=== PATIENT | male | born 1950 | race Two or more races ===

== ENCOUNTER 2023-08-14 10:00 | Inpatient (IN) | payer OTHER ==
[~2023-08-14] VITALS: Ht 170.2 cm; Wt 63.5 kg
[2023-08-14 15:35] LABS: URINE APPEARANCE Clear; URINE BILIRRUBIN Negative (NEGATIVE); URINE BLOOD Trace; URINE COLOR Yellow; URINE GLUCOSE Negative (NEGATIVE); URINE LEUKOCYTE Negative; URINE NITRATE Negative; URINE PROTEIN 30 (NEGATIVE)
[2023-08-14 15:44] LABS: URINE BACTERIA 31.4 uL (0.0-1933); URINE EPITHELIAL CELLS 7.5 uL (0.0-38.8); URINE RBC 16.5 uL (0.0-20.8); URINE WBC 5.3 uL (0.0-23.2)
[2023-08-14 15:53] LABS: INR 0.99; PARTIAL THROMBOPLASTIN TIME 27.7 SECONDS (22.0-34.0); PROTHROMBIN TIME 10.4 SECONDS (9.0-11.5)
[2023-08-14 15:57] LABS: ALBUMIN 3.4 gm/dL (3.4-5.0); CALCIUM 9.2 mg/dL (8.5-10.1); CREATININE SERUM 1.15 mg/dL (0.70-1.30); GFR 62.69; PHOSPHOROUS 3.1 mg/dL (2.5-4.9); POTASSIUM 3.22 mEq/L (3.5-5.1)
[2023-08-22 00:04] LABS: HEMATOCRIT 37.6 % (39.0-48.0); HEMOGLOBIN 12.7 g/dL (13-16.00); MEAN CELL VOLUME 101.7 fL (80.0-100.00); MEAN CORPUSCULAR HEMOGLOBIN 34.4 pg (27.00-32.0); MEAN CORPUSCULAR HGB CONC 33.8 g/dl (32.0-36.0); PLATELET COUNT 251 K/uL (150-450); RED BLOOD COUNT 3.69 M/uL (4.00-6.00); RED CELL DISTRIBUTION WIDTH 14.6 % (11.5-14.5)
[2023-08-22 00:36] LABS: ALBUMIN 3.2 gm/dL (3.4-5.0); CALCIUM 8.7 mg/dL (8.5-10.1); CREATININE SERUM 0.82 mg/dL (0.70-1.30); GFR 92.62; MAGNESIUM 1.7 mg/dL (1.8-2.4)
[2023-08-22 00:39] LABS: PHOSPHOROUS 1.9 mg/dL (2.5-4.9); POTASSIUM 2.96 mEq/L (3.5-5.1)
[2023-08-22 06:51] LABS: HEMATOCRIT 40.8 % (39.0-48.0); HEMOGLOBIN 13.8 g/dL (13-16.00); MEAN CELL VOLUME 99.5 fL (80.0-100.00); MEAN CORPUSCULAR HEMOGLOBIN 33.6 pg (27.00-32.0); MEAN CORPUSCULAR HGB CONC 33.7 g/dl (32.0-36.0); PLATELET COUNT 267 K/uL (150-450); RED CELL DISTRIBUTION WIDTH 14.7 % (11.5-14.5)
[2023-08-22 07:02] LABS: ALBUMIN 3.5 gm/dL (3.4-5.0); CALCIUM 8.8 mg/dL (8.5-10.1); CREATININE SERUM 0.87 mg/dL (0.70-1.30); GFR 86.5; PHOSPHOROUS 2.7 mg/dL (2.5-4.9); POTASSIUM 3.33 mEq/L (3.5-5.1)
[2023-08-23 06:56] LABS: HEMATOCRIT 32.3 % (39.0-48.0); HEMOGLOBIN 10.8 g/dL (13-16.00); MEAN CELL VOLUME 101.9 fL (80.0-100.00); MEAN CORPUSCULAR HEMOGLOBIN 34.2 pg (27.00-32.0); MEAN CORPUSCULAR HGB CONC 33.6 g/dl (32.0-36.0); PLATELET COUNT 209 K/uL (150-450); RED BLOOD COUNT 3.17 M/uL (4.00-6.00); RED CELL DISTRIBUTION WIDTH 14.8 % (11.5-14.5)
[2023-08-23 06:58] LABS: CALCIUM 8.3 mg/dL (8.5-10.1); CREATININE SERUM 1.21 mg/dL (0.70-1.30); GFR 59.11; MAGNESIUM 2.3 mg/dL (1.8-2.4); PHOSPHOROUS 3.2 mg/dL (2.5-4.9); POTASSIUM 3.55 mEq/L (3.5-5.1)
[2023-08-23] MEDS ORDERED: ST. JOSEPH ASPI81 M2 (15:03)
[2023-08-23] MEDS ORDERED: TAMSULOSIN HCL0.4 MG (15:03)
[2023-08-23] MEDS ORDERED: CILOSTAZOL100 MG (15:03)
[2023-08-23] MEDS ORDERED: VASOTEC20 MG (15:03)
[2023-08-23] MEDS ORDERED: FINASTERIDE5 MG (15:03)
[2023-08-23] MEDS ORDERED: ATORVASTATIN CA40 MG (15:03)
[2023-08-24] MEDS ORDERED: ACETAMINOPHEN500 M2 PO (11:33)
[2023-08-24] MEDS ORDERED: NEURONTIN300 MG PO (11:33)
== END 2023-08-24 10:48 | disposition home or self-care (01) | DRG 330 ==
LOC: O/R 08-21 08:40 → SURG 08-21 10:00
PROVIDERS: Internal Medicine Geriatric Medicine; ADMIT Surgery; ATTEND Surgery
PROC: 0DTP4ZZ Resection of Rectum, Percutaneous Endoscopic Approach (ICD-10-PCS; 2023-08-21)
PROC: 07BC4ZZ Excision of Pelvis Lymphatic, Percutaneous Endoscopic Approach (ICD-10-PCS; 2023-08-21)
PROC: 0DJD8ZZ Inspection of Lower Intestinal Tract, Via Natural or Artificial Opening Endoscopic (ICD-10-PCS; 2023-08-21)
PROC: 0DBU4ZZ Excision of Omentum, Percutaneous Endoscopic Approach (ICD-10-PCS; 2023-08-21)
PROC: 0DTN4ZZ Resection of Sigmoid Colon, Percutaneous Endoscopic Approach (ICD-10-PCS; principal; 2023-08-21 10:30)
DX: C20 Malignant neoplasm of rectum (principal); K62.5 Hemorrhage of anus and rectum; R59.0 Localized enlarged lymph nodes; K63.5 Polyp of colon; K57.30 Diverticulosis of large intestine without perforation or abscess without bleeding; I11.9 Hypertensive heart disease without heart failure